=== PATIENT | male | born 1985 | race Caucasian/White ===

== ENCOUNTER 2025-06-02 01:04 | Emergency (ER) | payer BC, SELFPAY ==
--- NOTE | ~2025-06-02 | CT_ITS ---
CLINICAL HISTORY: R flank pain CT abdomen and pelvis without contrast Comparison: None Findings: There is minimal dependent atelectasis. There is mild hepatic steatosis. The gallbladder, pancreas, spleen, and adrenal glands are unremarkable. There is minimal right hydronephrosis. There is a 2 mm stone at the right ureterovesical junction bulging into the bladder lumen. Left kidney is unremarkable. The appendix is normal. The remainder of the gastrointestinal tract is unremarkable. There are no enlarged lymph nodes. There are small bilateral fat containing inguinal hernias. The aorta is normal in diameter. There is no fracture or suspicious lytic or sclerotic lesion. IMPRESSION: 2 mm stone at the right ureterovesical junction with minimal hydronephrosis. This document has been electronically signed by: Mp Jain MD on 06/02/2025 03:27:08
[2025-06-02 01:08] VITALS: BP 117/78; PULSE 81; RESP 16; TEMP 35.8; O2SAT 99; BMI 30.5
[2025-06-02 01:20] VITALS: BP 128/76; PULSE 70; RESP 16; TEMP 36.7; O2SAT 98
--- NOTE | 2025-06-02 02:02 | ED_ITS ---
HPI - Back Pain/Injury General Chief Complaint: Back Pain/Injury Stated Complaint: right side lower back pain Time Seen by Provider: 06/02/25 01:35 Source: patient and old records reviewed Mode of arrival: ambulatory Limitations: no limitations History of Present Illness ED Provider: SARA HOU Narrative: 39 yo male with no PMH states he was asleep and woke up after turning with severe R back pain. He notes he felt a sharp pain in the R flank. He has no n/v/d and no urinary symptoms. Pain is on the inside and no abdominal pain and no pain in the back with movements. He has no numbness, weakness. He has never had this before. He states it doesn't hurt when he moves. He has no hx of renal colic. He does work as construction. MD elicited complaint: back pain Onset (ago): hour(s) (1) Timing: constant Severity: severe Similar Symptoms Previously: No Quality: sharp Location: right lower back Radiation: none Exacerbating factors: none Relieving factors: none Context: other Associated symptoms: denies other symptoms Related Data Previous Rx's ?Medication ?Instructions ?Recorded cyclobenzaprine 10 mg tablet 10 mg PO TID PRN muscle s pasm #14 06/02/25 tabs ketorolac 10 mg tablet 10 mg PO TID PRN pain 5 days #15 06/02/25 tabs ondansetron 4 mg disintegrating 4 mg PO Q8H PRN nausea and 06/02/25 tablet vomiting #20 tabs tamsulosin 0.4 mg capsule 0.4 mg PO DAILY 5 days #5 ca ps 06/02/25 Allergies Allergy/AdvReac Type Severity Reaction Status Date / Time No Known Allergies (No Known Allergy Verified 06/02/25 01:10 Allergies*) Review of Systems 2 Review of Systems: Constitutional : No Weight loss, No Fever, No Chills, ENT/Mouth : No Hearing loss, No Ear Pain, No Nasal Congestion, No Sinus Pain, No Hoarseness, No sore throat, No Rhinorrhea, No Swallowing Difficulty Cardiovascular : No Chest Pain, No SOB Respiratory : No Cough, No Dyspnea Gastrointestinal : No Nausea, No Vomiting, No Diarrhea, No abdominal Pain, No Hematochezia, No Melena Genitourinary : No Dysuria, No Urinary Frequency, No Hematuria, No Urinary Incontinence, Musculoskeletal : positive back pain Skin : No Skin Lesions, No rash Neuro : No Weakness, No Numbness, No Paresthesias, no loss of bowel or bladder incontinence, no saddle anesthesia all other systems reviewed and are negative [facility] Past Medical History Attestation statement: The following information was validated with the patient. Source: old records reviewed Medical History No pertinent past medical history Social History Social History (Updated 06/02/25 @ 02:04 by Esther Braga DO) Patient Tobacco Use Status: Never used Tobacco Smoked in Last 30 Days: No Use of substances other than those prescribed or required for medical reasons: No Advance Directives: No Advance Directives Information Provided: Yes Do you have a plan to hurt others: No Plan Physical Exam 2 Vital Signs: Vital Signs: Last Vital Signs Temp 98.1 F 06/02/25 01:20 Pulse 70 06/02/25 01:20 Resp 16 06/02/25 01:20 BP 128/76 06/02/25 01:20 Pulse Ox 98 06/02/25 01:20 O2 Del Method Room Air 06/02/25 01:20 BMI result Body Mass Index 30.5 Appearance: Alert. Oriented X3. No acute distress. Eyes: Pupils equal, round and reactive to light. ENT: Pharynx normal. Neck: Normal inspection. Neck supple. CVS: Normal heart rate and rhythm. Pulses normal. Respiratory: No respiratory distress. Breath sounds normal. Abdomen: Soft and nontender. Back: no ttp cannot reproduce pain Skin: Skin warm and dry. Normal skin color. Normal skin turgor. Extremities: No lower extremity edema. No calf ttp Neuro: Oriented X 3. No motor deficit. No sensory deficit. CN2-12 intact Medications Administered Discontinued Medications Generic Name Dose Route Start Last Admin Trade Name Freq PRN Reason Stop Dose Admin Ketorolac Tromethamine 15 mg 06/02/25 01:51 06/02/25 02:45 Ketorolac Tromethamine 15 Mg/Ml Vial IVPUSH 06/02/25 01:52 15 mg ONCE ONE Administration Ondansetron HCl 4 mg 06/02/25 01:51 06/02/25 02:45 Ondansetron Hcl 4 Mg/2 Ml Vial IVPUSH 06/02/25 01:52 4 mg ONCE ONE Administration Medical Decision Making Medical Decision Making [facility] Narrative: 39 yo male with abrupt onset R low back pain and flank pain but no associated n/v fevers or urinary issues he has no pain that is reproduceable so I suspect this is atypical for back strain - will obtain labs, given pain medications and obtain CT scan for renal colic. Differential Diagnosis Differential Diagnoses: The differential diagnosis associated with the presentation includes back strain, constipation, renal colic Admission/Observation Consideration of admission/observation: Escalation of care including admission/observation considered not toxic, tolerating PO stable for DC Lab Data [facility] Lab Attestation statement: I reviewed the patient's lab results. 06/02/25 02:18 06/02/25 02:18 Labs: Lab Results 06/02/25 06/02/25 Range/Units 02:18 02:31 WBC 5.3 (4.8-10.8) X10*3/uL RBC 5.01 (4.60-5.80) X10*6/uL Hgb 15.6 (14.0-18.0) g/dl Hct 43.2 (42.0-52.0) % MCV 86.2 (80.0-98.0) fL MCH 31.1 (27.0-33.0) pg MCHC 36.1 H (31.0-36.0) g/dl RDW 12.2 (11.0-16.0) % Plt Count 195 (160-400) X10*3/uL MPV 10.6 (9.4-12.4) fL Immature Gran % (Auto) 0.2 (0.0-0.4) % Neut % (Auto) 55.9 (45-73) % Lymph % (Auto) 32.1 (20-40) % [place] % (Auto) 10.1 (2-11) % Eos % (Auto) 1.3 (0-4) % Baso % (Auto) 0.4 (0-2) % Lymph # (Auto) 1.7 (1.2-4.9) X10*3/uL [place] # (Auto) 0.5 (0.1-1.2) X10*3/uL Eos # (Auto) 0.1 (0.0-0.4) X10*3/uL Baso # (Auto) 0.0 (0.0-0.2) X10*3/uL Abs Immat Gran (auto) 0.01 (0.00-0.03) X10*3/uL Absolute Neuts (auto) 2.9 (2.0-8.3) x10*3/uL Absolute Nucleated RBC 0.000 (0.0-0.012) X10*3/uL Nucleated RBC % (auto) 0.0 (0.0-0.2) /100WBC Sodium 141 (135-145) mmol/L Potassium 3.8 (3.3-5.1) mmol/L Chloride 107 (96-108) mmol/L Carbon Dioxide 23 (22-29) mmol/L Anion Gap 15 (12-20) BUN 24 H (9-16) mg/dL Creatinine 1.07 (0.5-1.4) mg/dL Estim Creat Clear Calc 95.1 Estimated GFR > 60 Random Glucose 132 H (60-115) mg/dL Calcium 9.0 (8.4-10.2) mg/dL Magnesium 2.1 (1.6-2.6) mg/dL Total Bilirubin 0.5 (0.0-1.0) mg/dL Direct Bilirubin 0.1 (0.0-0.5) mg/dL AST 34 (5-37) U/L ALT 52 H (0-40) U/L Alkaline Phosphatase 73 (39-117) U/L Total Protein 7.3 (6.5-8.0) g/dL Albumin 4.5 (3.5-5.0) g/dL Lipase 41 (8-78) U/L Urine Color Yellow Urine Appearance Clear Urine pH 5.5 (5.0-9.0) Ur Specific [place] >= 1.030 H (1.005-1.025) Urine Protein Trace (Neg-Trace) mg/dL Urine Glucose (UA) Negative (Negative) mg/dL Urine Ketones Trace (Negative) mg/dL Urine Blood Trace H (Negative) Urine Nitrite Negative (Negative) Ur Leukocyte Esterase Negative (Negative) Urine RBC 6-10 H (0-2) /HPF Urine WBC 0-5 (0-5) /HPF Ur Squamous Epith Cells 0-2 (0-2) /HPF Urine Bacteria None Seen (None Seen) Hyaline Casts 0-2 (0-2) /LPF Independent Interpretation I performed an independent interpretation of an: CT Scan (UVJ stone) Radiology Impression Discussion of test interpretation with radiology: I have reviewed the radiologist's reading. External Record Review External record reviewed: Outpatient record Prescription Management I considered prescription management with: Pain Medication and Other Discharge Plan Discharge Clinical Impression: Ureterolithiasis Patient Disposition: Home, Self-Care Instructions: Ureteral Stones (ED) Additional Instructions: labs reassuring, urine no infection CT scan shows a small 2mm stone that is going to pass into the bladder stay hydrated and drink plenty of fluids - flush it out return for fevers, unable to urinate, vomiting or any other concerns do not mix any over the counter medications with this pain medication this will happen again the best way to prevent is to stay hydrated - 60 ounces of water a day Findings: There is minimal dependent atelectasis. There is mild hepatic steatosis. The gallbladder, pancreas, spleen, and adrenal glands are unremarkable. There is minimal right hydronephrosis. There is a 2 mm stone at the right ureterovesical junction bulging into the bladder lumen. Left kidney is unremarkable. The appendix is normal. The remainder of the gastrointestinal tract is unremarkable. There are no enlarged lymph nodes. There are small bilateral fat containing inguinal hernias. The aorta is normal in diameter. There is no fracture or suspicious lytic or sclerotic lesion. IMPRESSION: 2 mm stone at the right ureterovesical junction with minimal hydronephrosis. Prescriptions: New cyclobenzaprine 10 mg tablet 10 mg PO TID PRN (Reason: muscle spasm) Qty: 14 0RF ketorolac 10 mg tablet 10 mg PO TID PRN (Reason: pain) 5 Days Qty: 15 0RF Rx Instructions: given IV toradol in department tamsulosin 0.4 mg capsule 0.4 mg PO DAILY 5 Days Qty: 5 0RF ondansetron 4 mg tablet,disintegrating 4 mg PO Q8H PRN (Reason: nausea and vomiting) Qty: 20 0RF Stand Alone Forms: Work/School Release Print Language: [place]
[2025-06-02 02:23] LABS: MANUAL DIFF FLAG NO
[2025-06-02 02:24] LABS: Hematocrit 43.2 % (42.0-52.0); Hemoglobin 15.6 g/dl (14.0-18.0); Imm Gran Abs Auto 0.01 X10*3/uL (0.00-0.03); Imm Gran Pct Auto 0.2 % (0.0-0.4); Lymphocytes Absolute Auto 1.7 X10*3/uL (1.2-4.9); Mean Corpuscular HGB Conc 36.1 g/dl (31.0-36.0); Mean Corpuscular Hemoglobin 31.1 pg (27.0-33.0); Mean Corpuscular Volume 86.2 fL (80.0-98.0); NRBC Abs Auto 0.000 X10*3/uL (0.0-0.012); NRBC Pct Auto 0.0 /100WBC (0.0-0.2); Platelet Count 195 X10*3/uL (160-400); Red Blood Count 5.01 X10*6/uL (4.60-5.80); White Blood Count 5.3 X10*3/uL (4.8-10.8)
[2025-06-02 02:37] LABS: Alanine Aminotransferase 52 U/L (0-40); Albumin Level 4.5 g/dL (3.5-5.0); Alkaline Phosphatase 73 U/L (39-117); Anion Gap 15 (12-20); Aspartate Amino Transferase 34 U/L (5-37); Blood Urea Nitrogen 24 mg/dL (9-16); Calcium 9.0 mg/dL (8.4-10.2); Carbon Dioxide 23 mmol/L (22-29); Chloride 107 mmol/L (96-108); Creatinine Clr Calc Pharmacy 95.1; Estimated Glomerular Filt Rate > 60; Lipase 41 U/L (8-78); Magnesium 2.1 mg/dL (1.6-2.6); Potassium 3.8 mmol/L (3.3-5.1); Sodium 141 mmol/L (135-145); Total Protein 7.3 g/dL (6.5-8.0)
[2025-06-02 02:39] LABS: Appearance Urine Clear; Glucose Urine UA Negative (Negative); PH 5.5 (5.0-9.0); Specific Gravity - Urine >= 1.030 (1.005-1.025); UMIC TRIGGER UACC YES
[2025-06-02 04:05] VITALS: BP 112/70; PULSE 62; RESP 16; TEMP 36.7; O2SAT 96
[2025-06-02 04:16] VITALS: BP 112/70; PULSE 62; RESP 16; TEMP 36.7; O2SAT 96
== END 2025-06-02 04:16 | disposition home or self-care (01) ==
PROVIDERS: Emergency Provider Emergency Medicine; PCP Internal Medicine
DX: N13.4 Hydroureter (principal); M54.50 Low back pain, unspecified
CPT/HCPCS: 36415; 74176; 80048; 80076; 81001; 83690; 83735; 85025; 96374; 96375; 99284; J1885; J2405

== ENCOUNTER → 2025-06-02 01:51 | Outpatient (BNV) | payer BC, SELFPAY | PROVIDERS: Emergency Provider Emergency Medicine; PCP Internal Medicine; Visit Provider Radiology Diagnostic Radiology | DX: N20.1 Calculus of ureter (principal) | CPT/HCPCS: 74176 ==